=== PATIENT | female | born 1955 | race American Indian/Alaskan Native ===

== ENCOUNTER 2018-05-30 05:58 | Day surgery (SDC) | payer OTHER ==
[~2018-05-30 05:58] MED LIST: ANCEF/STERILE WATER 2 GM/20 ML 2 GM/20 ML SYRINGE IV NR; LOVENOX SUB-Q SCH
[2018-05-30] MEDS ORDERED: VERSED IV NR (06:00)
[2018-05-30] MEDS ORDERED: LACTATED RINGERS 1,000 ML IV SCH (06:00)
[2018-05-30] MEDS ORDERED: NEURONTIN PO NR (06:00)
[2018-05-30] MEDS ORDERED: NACL BACTERIOSTATIC INFILTRATI ONE (06:29)
[2018-05-30] MEDS ORDERED: XYLOCAINE 1% 20 mL ONE (07:17)
[2018-05-30] MEDS ORDERED: NACL 0.9% 1000 ML 4,000 ML ONE (07:17)
[2018-05-30] MEDS ORDERED: ADRENALINE P/F ONE (07:18)
[2018-05-30] MEDS ORDERED: XYLOCAINE MPF 2% ONE (07:19)
[2018-05-30] MEDS ORDERED: SUBLIMAZE ONE (07:21)
[2018-05-30] MEDS ORDERED: DIPRIVAN 10 MG/ML IV ONE ×2 (07:22→14:02)
--- NOTE | 2018-05-30 07:37 | Anesthesia Consultation ---
Anesthesia Consult and Med Hx Date of service: 05/30/18 - Airway Anesthetic Teeth Evaluation: Good ROM Head & Neck: Adequate Mental/Hyoid Distance: Adequate Mallampati Class: Class II Intubation Access Assessment: Good - Pulmonary Exam CTA: Yes - Cardiac Exam Cardiac Exam: No Murmur - Pre-Operative Health Status ASA Pre-Surgery Classification: ASA1 Proposed Anesthetic Plan: General - Central Nervous System Hx Psychiatric Problems: No - Other Systems Hx Alcohol Use: Yes ([facility]) Hx Substance Use: No Hx Cancer: No
--- NOTE | 2018-05-30 07:37 | Anesthesia Day of Surgery ---
Anesthesia Day of Surgery - Day of Surgery Patient Examined: Yes Patient H&P Reviewed: Yes Patient is NPO: Yes
[2018-05-30] MEDS ORDERED: PEPCID IV NR (08:00)
[2018-05-30] MEDS ORDERED: XYLOCAINE 1%/ EPI 1:100,000 INFILTRATI ONE ×2 (08:38→08:58)
[2018-05-30] MEDS ORDERED: QUELICIN ONE (08:54)
[2018-05-30] MEDS ORDERED: ZEMURON IV ONE ×2 (08:54→11:08)
[2018-05-30] MEDS ORDERED: DECADRON ONE (08:54)
[2018-05-30] MEDS ORDERED: XYLOCAINE 1% 20 mL INFILTRATI ONE (08:54)
[2018-05-30] MEDS ORDERED: DILAUDID ONE ×2 (08:55→11:17)
[2018-05-30] MEDS ORDERED: ADRENALIN IV ONE (08:56)
[2018-05-30] MEDS ORDERED: NACL 0.9% IR ONE (08:57)
[2018-05-30] MEDS ORDERED: NACL 0.9% 1000 ML IR ONE (08:58)
[2018-05-30] MEDS ORDERED: ANCEF ONE (12:23)
--- NOTE | 2018-05-30 14:36 | Operative Report ---
Operative Report Operative Report: Plastic Surgery Operative Note Preoperative Diagnosis: Unacceptable Cosmetic appearance Postoperative Diagnosis: Same Procedure: Full lipoabdominoplasty with liposuction of the upper and lower abdomen, anterior waistline. Anesthesia: General endotracheal Surgeon: Claire Rivers MD Bmx Rider: None EBL: 100 cc Indications: This patient is a 62 year old AAF who presented with complaint of abdominal pannus, adiposity of the central abdomen and "muffin top" that she has had for years and not been able to lose. She desires a flat midsection. We discussed the benefits as well as the risks of lipoabdominoplasty, including but not limited to hematoma, seroma, infection, bleeding, scarring, keloids, pulmonary embolus and the need for further surgery. The patient understood and accepted these risks and decided to move forward with surgery. Informed consent was obtained. Procedure: After review of pertinent history and phsyical exam findings the patient was brought into the operating room and placed supine on the OR table. After induction of adequtae general endotracheal anesthesia, the abdomen was prepped and draped in the usual sterile surgical fashion. Using an 11 blade, cannula entry incisions were made in the lower abdomen, and 4.0 L of tumescent solution was infiltrated into the tissues of the abdomen and flanks. Power assisted liposcution was performed until aspirate was blood-tinged. We then began the tummy tuck portion of the procedure, creating a lower abdominal inci antonietta using a 10 blade, which was carried through subcutaneous tissue using the electrocautery. This dissection along the rectus fascia was carried cephalad to the xiphoid process, after which point rectus diastasis (measuring 5 cm at its widest) was repaired using a #1 PDS suture. The bed was then placed in a beach chair position and the lower abdominal pannus was marked and sharply excised. A 19 Fr Ernesto drain was placed and secured with a 2-0 Nylon suture and we began closure of her incisions in 3 layers beginning with a 0 PDO Quill suture to approximate Sue's fascia follwed by 3-0 Monoderm Quill in 2 layers. The umbilicus was delivered through the abdominal skin flap and secured with 2-0 Monocryl deep dermal and 4-0 subcuticular sutures. All incisions were then sealed with Dermabond. ABD pads were then placed along the abdominal incisions, followed by a compression garment. Patient was then awakened from general anesthesia and transferred to PACU in stable condition. There were no complications. All sponge, needle and instrument counts were correct at the end of the case.
[2018-05-30] MEDS ORDERED: ROBAXIN PO PRN (14:37)
[2018-05-30] MEDS ORDERED: ZOFRAN IV PRN (14:37)
[2018-05-30] MEDS ORDERED: NORCO 7.5/325 PO PRN (14:37)
--- NOTE | 2018-05-30 16:28 | Post Anesthesia Evaluation ---
- Post Anesthesia Evaluation Patient Participated: Yes Airway Patent: Yes Stable Respiratory Function: Yes Nausea/Vomiting: No Temp > 96.8F: Yes Pain Manageable: Yes Adequeate Hydration: Yes Anesthesia Complications: No
[2018-05-30] MEDS ORDERED: PHENERGAN PO PRN (17:13)
[2018-05-30] MEDS ORDERED: PHENERGAN ONE (17:23)
[2018-05-30 17:52] VITALS: BP 121/72
== END 2018-05-30 17:32 | disposition home or self-care (01) ==
LOC: OR 05:58
PROVIDERS: ATTEND Plastic Surgery
DX: Z41.1 Encounter for cosmetic surgery (principal); K21.9 Gastro-esophageal reflux disease without esophagitis; M19.90 Unspecified osteoarthritis, unspecified site; Z88.5 Allergy status to narcotic agent; Z91.018 Allergy to other foods; Z79.899 Other long term (current) drug therapy; Z72.89 Other problems related to lifestyle; Z98.890 Other specified postprocedural states; Z80.3 Family history of malignant neoplasm of breast
CPT/HCPCS: 15830; 15847; 82962; J0171; J0330; J0690; J1100; J1170; J1650; J2250; J2405; J2704; J3010; J7030; J7120; Q0169